=== PATIENT | female | born 1965 | race Caucasian/White ===

== ENCOUNTER 2017-02-14 21:53 | Emergency (ER) | payer OTHER ==
[~2017-02-14] VITALS: Ht 165.1 cm; Wt 82.7 kg
[2017-02-14 21:56] VITALS: BP 132/75; PULSE 97; RESP 16; O2SAT 99
--- NOTE | 2017-02-14 22:47 | ED.REPORT ---
HPI-Extremity Problem Lower Date of Service February 14, 2017 ED Provider: Nilay Chand DO This is a 51 year old female with history of depression, anxiety, chronic pain and opioid/benzodiazepine dependence who presents to [facility] complaining of right hip and knee pain after she fell through the porch at home earlier tonight. She was able to drive herself to the hospital. She denies LOS, headache, vision changes, nausea, vomiting, loss of sensation, loss of motor function. She reports pain mostly in the right hip and right knee 04/09. No radiation. Nursing Notes Stated Complaint: GROUND LEVEL FALL Chief Complaint: Extremity Trauma Nursing Notes Reviewed: Yes Allergies: Coded Allergies: No Known Allergies (Unverified , 02/14/17) General Time Seen by MD: 23:15 Chief Complaint Hip injury right, Knee injury right Hx Obtained From: Patient Arrived By: Walk-in Onset Occurred: Just prior to arrival Symptom Duration: Since onset Caused by: Accidental Context: Occurred at: Home injury Location: : Hip right: Knee right Quality: Burning Severity: Current: Severe Severity: Maximum: Severe Associated with: Reports: Joint swelling Pertinent Negative: Pt denies other symptoms Exacerbated by: Range of motion Relieved by: Rest Recent Healthcare: Recent doctor visit (Seen 1 week ago for left knee sprain ) Past Medical History Anxiety Depression Intervertebral disc disorder with radiculopathy Fibromyalgia Past Surgical History None reported Smoking History Current Every Day Smoker (1/2 pack x 35 years) Social History Alcohol Use: "Social" Drug Use: THC Ambulatory Status Cane Review of Systems Basic Review of Systems Eyes: Vision NL ENT: Hearing NL Respiratory: No cough : No dysuria, No frequency Endocrine: No weight gain, No weight loss Constitutional: Denies: Chills, Fatigue, Fever Musculoskeletal: Reports: Extremity swelling (right knee), Joint pain (right hip and knee), Denies: Back pain Neurologic: Reports: Problem walking, Denies: Abnormal movement, Bladder dysfunction, Bowel dysfunction, Change LOC , Dizziness, Focal weakness, Headache, Lightheaded, Numbness Respiratory: Denies: Dyspnea on exertion Cardiovascular: Denies: Chest pain Psychiatric: Reports: Anxiety, Depression, Denies: Suicidal ideation Physical Exam Initial Vital Signs Vital Signs (First) Date Time Temp Pulse Resp B/P Pulse Ox O2 Delivery O2 Flow Rate FiO2 02/14/17 21:56 36.4 97 16 132/75 99 Room Air Initial VS: Reviewed, Vital signs normal General/Constitutional: Well-developed, Well-nourished Head / Eyes: Atraumatic, Normocephalic, PERRL ENT: Mucous membranes moist, Conjunctiva normal, No scleral icterus Neck: Supple, Non-tender, Full range of motion Respiratory: Breath sounds normal, Clear to auscultation, No respiratory distress Cardiovascular: Regular rate & rhythm, Heart sounds normal, Intact distal pulses Abdomen / GI: Soft, Non-tender, No guarding, No rebound, No distention Back: No CVA tenderness Lymphatic: No lymphadenopathy Upper Extremities: Vascular intact, Neuro intact, No swelling, No tenderness Skin: Warm, Dry, No cyanosis Neurologic: Alert, Oriented, Nonfocal Lower Ext Brief Normals: Hip L exam normal Pelvis: Positive: Tender anterior (right) Right Hip: Positive: Tenderness present... (Mild) Right Knee: Positive: Swelling present... ( distal to medial knee) Trauma / Burn / Environmental: Positive: Abrasion (lateral right knee) Interpretation & Diagnostics X-Ray Interpretation Xray Interpretation: No acute fractures identified on imaging of pelvis, right femur and right knee X-Ray Ordered: Pelvis, Femur right, Knee right Interpretation / Wet Read by: Interpret - ED physician Re-Eval/Medical Decision Med Decision/Clinical Course This is a 51 year old female who presented to ED with right lower extremity pain after a fall. Acute fractures ruled out on imaging of the pelvis, right femur and right knee. Patient's pain level has improved from 7/10 to 3/10 with administration of Percocet, 5-325 mg, 1 tab. Knee immobilization and crutches oredered. Instructions given to follow up with orthopedics for further evaluation. Patient verbalised understanding and agreed with the plan. Patient dicharged home in a stable condition. Re-Evaluation/Progress : Time of Eval: 00:45 Post-Splint Evaluation: Distal sensation intact, Distal motor func intact Patient Status: Condition improved, Moderate relief Counseled Regarding: Diagnosis, Lab results, Need for follow-up, When/why to return to ED Discharge & Departure Shift Change Sign-Out Response to Therapy: Improved Impression: Primary Impression: Fall Encounter type: initial encounter Qualified Code: W19.XXXA - Unspecified fall, initial encounter Additional Impression: Contusion, knee Encounter type: initial encounter Laterality: right Qualified Code: S80.01XA - Contusion of right knee, initial encounter Disposition: Home Discharge Condition Condition: Stable Patient Instructions: Splint Care (ED), Crutch Instructions (ED) Additional Instructions: Thank you for seeking care at the emergency room today. All the imaging studies we have done are reassuring! You do not have an acute fracture. You have your knee immobilized. Please keep the splint on and call orthopedic clinic tomorrow to schedule a follow up appointment. Clinic located at [address] [place] [address] , [place] [address]. . You can take Ibuprofen for pain as needed. Please return to emergency room if you develop new symptoms or if your symptoms worsen. Thank you for letting us partake in your care today. Referrals: Iona Lucero PA-C (PCP) EDSupervising Provider for APC: Nilay Chand DO Attending Statement The injury seemed to be soft tissue in nature. No fractures identified. We will immobilize and have her be nonweightbearing on the leg. I performed a history. I took a physical. I concur with the note above. copies to: Iona Lucero PA-C, Oksana S DO February 14, 2017 22:47 Nilay Chand DO February 15, 2017 18:10
[2017-02-14] MEDS ORDERED: HYDROcodone-APAP 5-325 mg Tablet PO ONE (23:25)
[2017-02-15 02:30] VITALS: BP 120/74; PULSE 82; RESP 16; O2SAT 98
--- NOTE | 2017-02-15 08:59 | DRSVH ---
PROCEDURE: X-RAY RIGHT FEMUR, TWO VIEWS ([id number]) INDICATIONS: fall TECHNIQUE: 5 views of the femur were acquired. COMPARISON: None. FINDINGS: Bones: No fractures or dislocations. No suspicious bony lesions. Probable femoral synovial herniat ion pit projecting at the femoral neck. There is mild subchondral sclerosis and spurring. Mild joint space narrowing. Chronic spurring at the superior pole of the patella Soft tissues: No suspicious soft tissue calcifications or masses. IMPRESSION: No fracture. Mild right hip joint degeneration Dictated by: Miguel Waters M.D. on 02/15/2017 at 8:56 Approved by: Miguel Waters M.D. on 02/15/2017 at 8:58
--- NOTE | 2017-02-15 09:03 | DRSVH ---
PROCEDURE: X-RAY PELVIS, ONE OR TWO VIEWS ([id number]) INDICATIONS: fall TECHNIQUE: Single view(s) of the pelvis acquired. COMPARISON: [facility], CR, XR FEMUR 2VW RT, 02/14/2017, 23:28. FINDINGS: Bones: No fractures or dislocations. No suspicious bony lesions. Mild bilateral hip joint degenera tion. There is also lower lumbar spine discogenic changes. Soft tissues: Visualized bowel gas pattern is normal. No suspicious soft tissue calcifications. IMPRESSION: No fracture Dictated by: Miguel Waters M.D. on 02/15/2017 at 8:59 Approved by: Miguel Waters M.D. on 02/15/2017 at 9:01
== END 2017-02-15 02:35 | disposition home or self-care (01) ==
LOC: SED 21:53
DX: S80.01XA Contusion of right knee, initial encounter (principal); W13.8XXA Fall from, out of or through other building or structure, initial encounter; Y93.89 Activity, other specified; Y92.009 Unspecified place in unspecified non-institutional (private) residence as the place of occurrence of the external cause; Y99.8 Other external cause status; M79.7 Fibromyalgia; F32.9 Major depressive disorder, single episode, unspecified; F17.200 Nicotine dependence, unspecified, uncomplicated